=== PATIENT | female | born 1935 | race Caucasian/White ===

== ENCOUNTER 2016-11-19 09:10 | Outpatient (CLI) ==
--- NOTE | 2016-11-19 10:01 | MAMMO ---
EXAM: Bilateral digital screening mammogram History: Screening Comparison: Bilateral mammogram 11/14/2014 Findings: MLO and CC views of bilateral breasts demonstrate scattered fibroglandular breast parench yma. Stable benign bilateral breast calcifications. There are no dominant masses, no suspicious mi crocalcifications and no architectural distortions Impression: Benign stable mammogram. Recommend followup routine screening mammography in 1 year. BIRADS 2
== END 2016-11-19 09:11 | disposition home or self-care (01) ==
LOC: RAD 09:10
PROVIDERS: ATTEND Family Medicine
DX: Z12.31 Encounter for screening mammogram for malignant neoplasm of breast (principal)

== ENCOUNTER 2017-09-22 09:52 | Outpatient (CLI) ==
--- NOTE | 2017-09-22 12:01 | DEXA ---
EXAM: Bone densitometry. History: Postmenopausal. Findings: Evaluation of the lumbar spine reveals a total bone mineral density of 0.944 grams per centimeter squ ared with T-score of negative 2.5. Evaluation of the left hip reveals a total bone mineral density of 0.662 grams per centimeter squared with T-score of negative 2.7. Evaluation of the right hip reveals a total bone mineral density of 0.674 grams per centimeter square d with T-score of negative 2.6. Impression: Osteoporosis of the lumbar spine and bilateral hips
== END 2017-09-22 09:53 | disposition home or self-care (01) ==
LOC: RAD 09:52
PROVIDERS: ATTEND Family Medicine
DX: Z78.0 Asymptomatic menopausal state (principal); Z13.820 Encounter for screening for osteoporosis

== ENCOUNTER 2018-05-04 09:04 | Outpatient (CLI) ==
--- NOTE | 2018-05-05 08:42 | MAMMO ---
EXAM: Bilateral digital screening mammogram (2-D and 3-D) History: Screening Comparison: Bilateral mammogram 11/19/2016 Findings: MLO and CC views of bilateral breasts demonstrate scattered fibroglandular breast parenchy ma. CAD was reviewed by the radiologist. Tomosynthesis was performed. Stable benign bilateral [address] calcifications. There are no dominant masses, no suspicious microcalcifications and no architectu ral distortions Impression: Benign stable mammogram. Recommend followup routine screening mammography in 1 year. BIRADS 2
== END 2018-05-04 09:05 | disposition home or self-care (01) ==
LOC: RAD 09:04
PROVIDERS: ATTEND Family Medicine
DX: Z12.31 Encounter for screening mammogram for malignant neoplasm of breast (principal)
CPT/HCPCS: 77067

== ENCOUNTER 2019-12-17 16:09 | Inpatient (IN) ==
[2019-12-17] MEDS ORDERED: SODIUM CHLORIDE 1,000 ML IV STA ×2 (16:32)
[2019-12-17] MEDS ORDERED: TYLENOL PO STA (16:32)
[2019-12-17] MEDS ORDERED: ZOSYN 3.375 GM 3.375 GM in SODIUM CHLORIDE 50 ML IV STA (16:32)
--- NOTE | 2019-12-17 16:40 | ED.PDOC ---
General ED Provider: Dr. LUKE MEAD MD Chief Complaint: Shortness of Air Stated Complaint: mild to mod off and cough for a few days, +short of breath, +fever, speech fluent, no rash, pleuritic chest pain Time Seen by Physician: 16:38 Mode of Arrival: Walk-In Information Source: Patient Primary Care Provider: CARY DEAN Nursing and Triage Documentation Reviewed and Agree: Yes Does patient meet sepsis criteria?: No System Inflammatory Response Syndrome: Not Applicable Sepsis Protocol: For patient's 13 years and over: Temp is 96.8 and below OR 101 and greater Pulse >90 BPM Resp >20/minute Acutely Altered Mental Status Are patient's symptoms suggestive of a new infection, such as: -Pneumonia -Skin, Soft Tissue -Endocarditis -UTI -Bone, Joint Infection -Implantable Device -Acute Abdominal Infection -Wound Infection -Meningitis -Blood Stream Catheter Infection -Unknown Respiratory Complaint Exam Respiratory Complaint/Exam Onset/Duration: few days Symptoms Are: Still present Timing: Intermittent Initial Severity: Mild Current Severity: Moderate Character: Reports Dry cough Aggravating: Reports Deep breaths Alleviating: Reports None Associated Signs and Symptoms: Reports Dyspnea, Fever and Pleuritic chest pain Review of Systems Review Of Systems Constitutional: Reports Fever and Malaise Eyes: Denies Vision change Ears, Nose, Mouth, Throat: Denies Throat pain Respiratory: Reports Cough and Short of air Cardiac: Reports Chest pain GI: Denies Abdominal pain : Denies Burning Musculoskeletal: Denies Back pain Skin: Denies Rash Neurological: Denies Cognitive dysfunction All Other Systems: Other Physical Exam Physical Exam Appearance: Reports No pain distress Ill-appearing: Mild Pain Distress: None Eyes: Reports PATT and EOMI ENT: Reports Dry mucosa Neck: Supple Respiratory: Reports Airway patent; Denies Wheezes and Retractions Cardiovascular: Reports Tachycardia GI/: Reports Soft and Nontender Musculoskeletal: Reports No edema Skin: Reports Warm and Dry Neurological: Reports Cranial nerves intact, Alert and Oriented Psychiatric: Reports Affect appropriate Interpretation Radiology Interpretation Radiology Interpretation By: Radiologist Exam Interpreted: CXR Xray Comments: LLL infil EKG Interpretation Time of EKG #1: 18:11 Rate: Normal Rhythm: Sinus Ectopy: None Interpretation: no stemi Re-Evaluation Re-Evaluation Time of Re-Evaluation: 18:11 Status: Improved Vital Signs Stable: Yes Appearance: NAD Skin: Warm and Dry Neuro: Alert and Oriented X3 Additional Comments: admit d/w Dr Dean Critical Care Note Critical Care Note Total Time (mins): 0 Course Course Hematology/Chemistry: 12/17/19 16:56 12/17/19 16:56 Orders, Labs, Meds: Lab Review 12/17/19 12/17/19 12/17/19 16:32 16:56 16:56 WBC 5.85 RBC 4.60 Hgb 13.5 Hct 40.6 MCV 88.3 MCH 29.3 MCHC 33.3 RDW Coeff of [place] 12.7 Plt Count 244 Immature Gran % (Auto) 0.5 Neut % (Auto) 65.6 Lymph % (Auto) 20.9 [place] % (Auto) 10.3 H Eos % (Auto) 2.2 Baso % (Auto) 0.5 Immature Gran # (Auto) 0.0 Neut # (Auto) 3.8 Lymph # (Auto) 1.2 [place] # (Auto) 0.6 Eos # (Auto) 0.1 Baso # (Auto) 0.0 Puncture Site Rbrach O2 Saturation 97.0 ABG pH 7.450 ABG pCO2 30.7 L ABG pO2 90.0 ABG HCO3 21.4 L ABG Total CO2 22 ABG Base Excess -3 L O2 Delivery Device Nc Oxygen Liter Flow 2.00 Sodium 133.0 L Potassium 4.53 Chloride 95.7 L Carbon Dioxide 28.5 Anion Gap 13.33 BUN 23.6 H Creatinine 0.87 Estimated GFR (MDRD) 62.00 BUN/Creatinine Ratio 27.12 Glucose 126.6 H Lactic Acid Calcium 10.26 H Total Bilirubin 0.67 AST 38.4 H ALT 24.0 Alkaline Phosphatase 82.4 Troponin I < 0.012 Total Protein 7.83 Albumin 4.49 Globulin 3.34 Albumin/Globulin Ratio 1.34 12/17/19 16:56 WBC RBC Hgb Hct MCV MCH MCHC RDW Coeff of [place] Plt Count Immature Gran % (Auto) Neut % (Auto) Lymph % (Auto) [place] % (Auto) Eos % (Auto) Baso % (Auto) Immature Gran # (Auto) Neut # (Auto) Lymph # (Auto) [place] # (Auto) Eos # (Auto) Baso # (Auto) Puncture Site O2 Saturation ABG pH ABG pCO2 ABG pO2 ABG HCO3 ABG Total CO2 ABG Base Excess O2 Delivery Device Oxygen Liter Flow Sodium Potassium Chloride Carbon Dioxide Anion Gap BUN Creatinine Estimated GFR (MDRD) BUN/Creatinine Ratio Glucose Lactic Acid 1.44 Calcium Total Bilirubin AST ALT Alkaline Phosphatase Troponin I Total Protein Albumin Globulin Albumin/Globulin Ratio Orders Category Date Time Status ADMIT PATIENT INPATIENT .TO SCU (MONITORED BED) ADMISSION 12/17/19 18:12 Active ABG DRAW REQUEST Stat CARDIO 12/17/19 16:33 Completed EKG-(ED ONLY) Stat CARDIO 12/17/19 16:32 Completed OXYGEN Routine CARDIO 12/17/19 18:14 Ordered INTAKE & OUTPUT Q8HR CARE 12/17/19 18:13 Active TELEMETRY MONITORING TELE CARE 12/17/19 18:13 Active VITAL SIGNS Q8HR CARE 12/17/19 18:13 Active ED APPLY O2 .ONCE EMERGENCY 12/17/19 16:32 Active ABG Stat LAB 12/17/19 16:32 Completed BLOOD CULTURE Stat LAB 12/17/19 17:00 Received CBC W/ AUTO DIFF DAILY@0600 LAB 12/18/19 06:00 Ordered CBC W/ AUTO DIFF DAILY@0600 LAB 12/19/19 06:00 Ordered CBC W/ AUTO DIFF Stat LAB 12/17/19 16:56 Completed COMPREHENSIVE METABOLIC PANEL DAILY@0600 LAB 12/18/19 06:00 Ordered COMPREHENSIVE METABOLIC PANEL DAILY@0600 LAB 12/19/19 06:00 Ordered COMPREHENSIVE METABOLIC PANEL Stat LAB 12/17/19 16:56 Completed COVID19, PCR IDPH Stat LAB 12/17/19 16:55 Received LACTIC ACID Stat LAB 12/17/19 16:56 Completed TROPONIN I Stat LAB 12/17/19 16:56 Completed URINALYSIS C & S IF INDICATED Stat LAB 12/17/19 18:27 Received Acetaminophen [Tylenol] MEDS 12/17/19 16:32 Discontinued 650 mg PO ONCE STA Acetaminophen [Tylenol] MEDS 12/17/19 18:13 Active 650 mg PO Q4H PRN Piperacillin Sodium/Tazobactam [Zosyn 3.375 gm] 3.375 MEDS 12/17/19 16:32 Discontinued gm 0.9 % Sodium Chloride [Sodium Chloride] 50 ml IV ONCE Sodium Chloride 0.9% [Sodium Chloride] 1,000 ml MEDS 12/17/19 16:32 Active IV 30 mls/hr Sodium Chloride 0.9% [Sodium Chloride] 1,000 ml MEDS 12/17/19 18:30 Active IV 75 mls/hr Sodium Chloride 0.9% [Sodium Chloride] 1,000 ml MEDS 12/17/19 16:32 Discontinued IV BOLUS RESUSCITATION STATUS Routine OTHERS 12/17/19 18:13 Ordered CHEST, 1V AP ONLY Stat RADS 12/17/19 16:32 Completed Medications Generic Name Dose Route Start Last Admin Trade Name Freq PRN Reason Stop Dose Admin Acetaminophen 650 mg 12/17/19 18:13 Tylenol PO Q4H PRN Mild Pain Sodium Chloride 1,000 mls @ 30 mls/hr 12/17/19 16:32 Sodium Chloride IV 12/19/19 01:51 .[id number] STA Sodium Chloride 1,000 mls @ 75 mls/hr 12/17/19 18:30 12/17/19 18:50 Sodium Chloride IV 75 mls/hr .[id number] WISAM Administration Discontinued Medications Generic Name Dose Route Start Last Admin Trade Name Freq PRN Reason Stop Dose Admin Acetaminophen 650 mg 12/17/19 16:32 12/17/19 17:23 Tylenol PO 12/17/19 16:33 650 mg ONCE STA Administration Sodium Chloride 1,000 mls @ 1,000 mls/hr 12/17/19 16:32 12/17/19 17:11 Sodium Chloride IV 12/17/19 17:31 1,000 mls/hr BOLUS STA Administration Piperacillin Sod/Tazobactam 50 mls @ 50 mls/hr 12/17/19 16:32 12/17/19 17:23 Sod 3.375 gm/ Sodium Chloride IV 12/17/19 17:31 50 mls/hr ONCE STA Administration Vital Signs: Temp Pulse Resp BP Pulse Ox 12/17/19 16:10 102.7 F H 108 H 20 104/71 90 L Discharge Plan Discharge Patient Disposition: ADMITTED INPATIENT Discharge Problem: Pneumonia Qualifiers: Pneumonia type: due to unspecified organism Laterality: left Lung location: lower lobe of lung Qualified Code(s): J18.9 - Pneumonia, unspecified organism ED Provider: LUKE MEAD Condition: Stable
--- NOTE | 2019-12-17 16:58 | DI ---
Exam: Single view chest x-ray. Date: 12/17/2019. Comparison: None. HISTORY: Fever. FINDINGS: No acute osseous abnormalities are seen. There is a very limited inspiration. There is a n infiltrate in the left lung base. The cardiac silhouette and pulmonary vasculature are normal. Impression: Very limited inspiration, but within infiltrate in the left lung base. Recommend correl ation to exclude pneumonia.
[2019-12-17 17:04] LABS: HEMATOCRIT 40.6 % (37.0-47.0)
[2019-12-17] MEDS ORDERED: TYLENOL PO PRN ×2 (18:13→19:01)
[2019-12-17] MEDS ORDERED: SODIUM CHLORIDE 1,000 ML IV SCH (18:30)
[2019-12-17 20:34] VITALS: BMI 20.5
[2019-12-17] MEDS: VENTOLIN HFA (PER PUFF-WITH SPACER) IH SCH (20:45)
[2019-12-17] MEDS: SODIUM CHLORIDE 1,000 ML IV SCH (21:14)
[2019-12-17] MEDS: ROCEPHIN 1 GM/50 ML D5W 1 GM/50 ML BAG IV SCH (21:14)
[2019-12-17] MEDS: DOXY-100 100 MG in SODIUM CHLORIDE 100 ML IV SCH (22:14)
[2019-12-18] MEDS: VENTOLIN HFA (PER PUFF-WITH SPACER) IH SCH ×4 (05:10→20:20)
[2019-12-18] MEDS: HYDROCHLOROTHIAZIDE PO SCH (08:38)
[2019-12-18] MEDS: COZAAR PO SCH (08:38)
[2019-12-18] MEDS: ROCEPHIN 1 GM/50 ML D5W 1 GM/50 ML BAG IV SCH (08:38)
[2019-12-18] MEDS: ZOCOR PO SCH (08:39)
[2019-12-18] MEDS: PAXIL PO SCH (08:39)
[2019-12-18] MEDS: LOVENOX SUBCUT SCH (08:44)
[2019-12-18] MEDS ORDERED: NON-FORMULARY MEDICATION (Losartan-Hydrochlorothiazide 1 TAB) PO SCH (09:00)
[2019-12-18] MEDS: DOXY-100 100 MG in SODIUM CHLORIDE 100 ML IV SCH ×2 (10:55→20:30)
[2019-12-18] MEDS ORDERED: ROCEPHIN 1 GM/50 ML D5W 1 GM/50 ML BAG IV SCH (20:30)
[2019-12-18] MEDS: SODIUM CHLORIDE 1,000 ML IV SCH (21:12)
[2019-12-19] MEDS: VENTOLIN HFA (PER PUFF-WITH SPACER) IH SCH ×4 (04:50→19:55)
[2019-12-19 05:17] LABS: HEMATOCRIT 33.3 % (37.0-47.0)
--- NOTE | 2019-12-19 07:52 | DI ---
EXAM: Chest one view, frontal view only. HISTORY: Pneumonia follow-up. Coronavirus positive. COMPARISON: 12/17/2019. FINDINGS: Heart size is normal. Left basilar consolidation is probably unchanged. No new opacities are seen. No large pleural effusion or pneumothorax identified. Clips seen in the right upper abdo men. No acute osseous abnormality detected. IMPRESSION: Stable left basilar consolidation.
[2019-12-19] MEDS: LOVENOX SUBCUT SCH (08:36)
[2019-12-19] MEDS: ROCEPHIN 1 GM/50 ML D5W 1 GM/50 ML BAG IV SCH (08:36)
[2019-12-19] MEDS: DOXYCYCLINE HYCLATE PO SCH ×2 (08:37→20:08)
[2019-12-19] MEDS: ZOCOR PO SCH (08:37)
[2019-12-19] MEDS: COZAAR PO SCH (08:38)
[2019-12-19] MEDS: PAXIL PO SCH (08:38)
[2019-12-19] MEDS: HYDROCHLOROTHIAZIDE PO SCH (08:38)
[2019-12-20] MEDS: VENTOLIN HFA (PER PUFF-WITH SPACER) IH SCH (05:25)
[2019-12-20 05:45] VITALS: BP 109/53; TEMP 98.1
[2019-12-20] MEDS: ROCEPHIN 1 GM/50 ML D5W 1 GM/50 ML BAG IV SCH (08:47)
[2019-12-20] MEDS: PAXIL PO SCH (08:47)
[2019-12-20] MEDS: DOXYCYCLINE HYCLATE PO SCH (08:48)
[2019-12-20] MEDS: ZOCOR PO SCH (08:48)
[2019-12-20] MEDS: COZAAR PO SCH (08:48)
[2019-12-20] MEDS: HYDROCHLOROTHIAZIDE PO SCH (08:49)
[2019-12-20] MEDS: LOVENOX SUBCUT SCH (08:51)
--- NOTE | 2020-01-18 10:35 | HP ---
DISCUSSION: Ms. Dixon is an 84-year-old lady who presented to the Emergency Department with a mild to moderate cough over the past two days with shortness of breath and temperature up to 102. She was seen in the emergency department by Dr. Terrazas where she was noted to have 102.7 temperature. She was slightly hypoxic with oxygen saturation of 90% and a chest x-ray revealing pneumonia and infiltrate. The patient was swabbed for Covid-19 virus and because of her relative hypoxia, age she was considered a candidate for admission. Therefore, she was admitted to my services pending results of Covid-19 testing. PAST MEDICAL HISTORY: History of hypertension Hyperlipidemia History of anxiety MEDICATIONS: Welchol 625 mg daily Flexeril 10 mg t.i.d. Losartan/Hydrochlorthiazide 100-12.5 mg one tab p.o. daily Paxil 10 mg p.o. q.daily Simvastatin 10 mg p.o. daily ALLERGIES: NKDA SOCIAL HISTORY: She is a retired teacher. No history of alcohol or tobacco use. FAMILY HISTORY: Reviewed and there are no familial tendancies. REVIEW OF SYSTEMS: She has had headache, productive cough, fever up to 102 and shortness of breath. Denies nausea, vomiting, chest pain, hemoptysis, abdominal pain, blood in the stool, urinary frequency or seizure. PHYSICAL EXAMINATION: V/S: Temperature 101, pulse 90, respirations 21, BP 109/53, oxygen saturation 90% on room air. HEENT: Pupils are round. NECK: Supple. CHEST: Clear with scattered rhonchi. CARDIOVASCULAR: Regular rate and rhythm. ABDOMEN: Soft, nontender without edema. EXTREMITIES: Distal extremities without cyanosis or edema. ASSESSMENT: 1. ACUTE RESPIRATORY FAILURE 2. COMMUNITY ACQUIRED PNEUMONIA, RULE OUT COVID-19 INFECTION PLAN: 1. The patient is admitted with broad-spectrum antibiotics. 2. Oxygen to help treat the hypoxia. 3. We await the Covid-19 swab. 4. She appears comfortable under oxygen. 5. Please see orders. MTDD
--- NOTE | 2020-01-18 10:45 | DS ---
PRINCIPAL DIAGNOSIS: 1. COVID-19 INFECTION WITH PNEUMONIA DISCUSSION: Ms. Dixon is an 84-year-old lady who presented to the Emergency Department with a mild to moderate cough over the past two days with shortness of breath and temperature up to 102. She was seen in the emergency department by Dr. Terrazas where she was noted to have 102.7 temperature. She was slightly hypoxic with oxygen saturation of 90% and a chest x-ray revealing pneumonia and infiltrate. The patient was swabbed for Covid-19 virus and because of her relative hypoxia, age she was considered a candidate for admission. Therefore, she was admitted to services pending results of Covid-19 testing. CLINICAL COURSE: The patient was admitted. Her main complaint however was shortness of breath. She was relatively hypoxic in the emergency room with oxygen. This improved. However, over the hospital stay she defervesced. We were able to wean her from the oxygen at time of discharge she was febrile. Her oxygen saturation stayed up without additional oxygen. Her Covid-19 swab [facility]. At this point the patient was discharged to be home quarantined for 10 days. She will be discharged with antibiotics and we will followup by phone in one week. LANE
== END 2019-12-20 09:30 | disposition home or self-care (01) | DRG 177 ==
LOC: ED 16:09 → SCU 18:13
PROVIDERS: ADMIT Family Medicine; ATTEND Family Medicine
DX: J96.01 Acute respiratory failure with hypoxia; U07.1 COVID-19; J18.9 Pneumonia, unspecified organism; R06.02 Shortness of breath; R07.9 Chest pain, unspecified; Z51.81 Encounter for therapeutic drug level monitoring; Z79.899 Other long term (current) drug therapy; R00.0 Tachycardia, unspecified